=== PATIENT | male | born 1995 | race Caucasian/White ===

== ENCOUNTER 2018-04-30 13:03 | Inpatient (IN) | payer OTHER ==
[2018-04-30 13:55] VITALS: BMI 27.0
--- NOTE | 2018-04-30 14:48 | HP ---
COWS - Scale Resting Pulse: 0= [place] 80 or Below Sweatin= Chills/Flushing Restless Observation: 0= Sits Still Pupil Size: 0= Normal to Room Light Bone or Joint Aches: 1= Mild Discomfort Runny Nose/ Eye Tearin= Nasal Congestion GI Upset > 30mins: 2= Nausea/Diarrhea Tremor Observation: 2= Slight Tremor Visible Yawning Observation: 1= 1-2x During Session Anxiety or Irritability: 1=Feels Anxious/Irritable Goose Flesh Skin: 0=Smooth Skin COWS Score: 9 CIWA Score Nausea/Vomitin Muscle Tremors: 4-Moderate,w/Arms Extend Anxiety: 4-Mod. Anxious/Guarded Agitation: 1-Slight > Activity Paroxysmal Sweats: 1-Minimal Palms Moist Orientation: 0-Oriented Tacttile Disturbances: 0-None Auditory Disturbances: 1-Very Mild Visual Disturbances: 0-None Headache: 1-Very Mild CIWA-Ar Total Score: 15 - Admission Criteria [facility]ASAS Guidelines: Admission for Medically Managed Detox: Requires at least one of the followin. CIWA greater than 12 2. Seizures within the past 24 hours 3. Delirium tremens within the past 24 hours 4. Hallucinations within the past 24 hours 5. Acute intervention needed for co occurring medical disorder 6. Acute intervention needed for co occurring psychiatric disorder 7. Severe withdrawal that cannot be handled at a lower level of care (continued vomiting, continued diarrhea, abnormal vital signs) requiring intravenous medication and/or fluids 8. Patient presents the following: CIWA greater than 12 Admission Criteria Met: Admission criteria met Admission ROS [facility] - [facility] Chief Complaint: I'm so sick of this, sick all the time, I want to stop using, I need help. Allergies/Adverse Reactions: Allergies Allergy/AdvReac Type Severity Reaction Status Date / Time Penicillins Allergy Severe Swelling Verified 04/30/18 14:17 History of Present Illness: 22 yo gentleman here for detox from opiates and alprazolam. History of drug related seizures and black outs. History of detox and rehab in [place] - was on Vivitrol and did well until he stopped it as he thought he didn't need it and then relapsed. Came to [place] in 2017 from [place]. Wants to get back on Vivitrol Exam Limitations: Clinical Condition - Ebola screening Have you traveled outside of the country in the last 21 days: No (N) Have you had contact with anyone from an Ebola affected area: No Have you been sick,other than usual withdrawal symptoms: No Do you have a fever: No - Review of Systems Constitutional: Loss of Appetite, Night Sweats, Changes in sleep, Weakness EENT: reports: Nose Congestion Respiratory: reports: No Symptoms reported Cardiac: reports: No Symptoms Reported GI: reports: Diarrhea, Indigestion, Abdominal cramping : reports: Dysuria Musculoskeletal: reports: Back Pain, Muscle Pain Integumentary: reports: No Symptoms Reported Neuro: reports: Headache, Tremors Endocrine: reports: No Symptoms Reported Hematology: reports: No Symptoms Reported Psychiatric: reports: Mood/Affect Appropiate, Orientated x3, Anxious Other Systems: Reviewed and Negative Patient History - Patient Medical History Hx Asthma: No Hx Chronic Obstructive Pulmonary Disease (COPD): No Hx Cancer: No Hx Cardiac Disorders: No Hx Hypertension: No Hx Hypercholesterolemia: No Hx Pacemaker: No HX Cerebrovascular Accident: No Hx Seizures: Yes (2017 induced by drug intoxication) Hx Diabetes: No Hx Gastrointestinal Disorders: No Hx Liver Disease: No Hx Genitourinary Disorders: No Hx Sexually Transmitted Disorders: No Hx Renal Disease (ESRD): No Hx Thyroid Disease: No Hx Human Immunodeficiency Virus (HIV): No Hx Hepatitis C: No Hx Depression: No Hx Suicide Attempt: No (denies) Hx Schizophrenia: No - Patient Surgical History Past Surgical History: Yes Hx Neurologic Surgery: No Hx Cataract Extraction: No Hx Cardiac Surgery: No Hx Lung Surgery: No Hx Breast Surgery: No Hx Breast Biopsy: No Hx Abdominal Surgery: No Hx Appendectomy: Yes (2015) Hx Cholecystectomy: No Hx Genitourinary Surgery: No Hx Orthopedic Surgery: No Anesthesia Reaction: No - PPD History Previous Implant?: Yes Documented Results: Negative w/o proof Implanted On Prior [facility] Admission?: No PPD to be Administered?: Yes - Reproductive History Patient is a Female of Child Bearing Age (11 -55 yrs old): No (male) - Smoking Cessation Smoking history: Current every day smoker Have you smoked in the past 12 months: Yes Aproximately how many cigarettes per day: 20 Cigars Per Day: 0 Hx Chewing Tobacco Use: No Initiated information on smoking cessation: Yes 'Breaking Loose' booklet given: 04/30/18 (give on floor) - Substance & Tx. History Hx Alcohol Use: No Hx Substance Use: Yes Substance Use Type: Heroin, Tranquilizers Hx Substance Use Treatment: Yes (detox and rehab in [place]) - Substances Abused Heroin Route: Inhalation Frequency: Daily Amount used: 10-15 BAGS Age of first use: 20 Date of Last Use: 04/30/18 Alcohol Route: Oral Frequency: 1-2 times per week Amount used: five 12z cans of beer, Age of first use: 15 Date of Last Use: 04/29/18 XANAX Route: Oral Frequency: Daily Amount used: 3-6 4 mg TABLETS Age of first use: 20 Date of Last Use: 04/30/18 marijuana Route: Smoking Frequency: 1-2 times per week Amount used: 1 joint Age of first use: 13 Date of Last Use: 04/23/18 Family Disease History - Family Disease History Family Disease History: Other: Father (living, healthy), Mother (living, healthy ), Sister (two - healthy) Admission Physical Exam [facility] - Vital Signs Vital Signs: Vital Signs - 24 hr 04/30/18 13:54 Temperature 96.9 F L Pulse Rate 63 Respiratory 20 Rate Blood Pressure 142/70 - Physical General Appearance: Yes: Nourished, Appropriately Dressed, Mild Distress, Tremorous, Anxious HEENTM: Yes: EOMI, Hearing grossly Normal, Normal ENT Inspection, Normocephalic , Normal Voice Respiratory: Yes: Normal Breath Sounds, No Respiratory Distress Neck: Yes: No masses,lesions,Nodules, Supple Breast: Yes: Breast Exam Deferred Cardiology: Yes: Regular Rhythm, Regular Rate Abdominal: Yes: Flat, Soft Genitourinary: Yes: Frequency Back: Yes: Normal Inspection Musculoskeletal: Yes: full range of Motion, Gait Steady Extremities: Yes: Normal Inspection, Normal Range of Motion, Non-Tender Neurological: Yes: Fully Oriented, Alert, Normal Mood/Affect, Normal Response Integumentary: Yes: Normal Color, Warm Lymphatic: Yes: Within Normal Limits - Diagnostic (1) Sedative, hypnotic or anxiolytic dependence with withdrawal, uncomplicated Current Visit: Yes Status: Chronic (2) Opioid dependence with withdrawal Current Visit: Yes Status: Chronic (3) Nicotine dependence Current Visit: Yes Status: Acute Qualifiers: Nicotine product type: cigarettes Substance use status: uncomplicated Qualified Code(s): F17.210 - Nicotine dependence, cigarettes, uncomplicated (4) History of seizure Current Visit: Yes Status: Acute Cleared for Admission [facility] - Detox or Rehab [facility] Level of Care: Medically Managed [facility] Breath Alcohol Content Breath Alcohol Content: 0 Urine Drug Screen - Results Drug Screen Negative: No Urine Drug Screen Results: THC-Marijuana, BZO-Benzodiazepines, MTD-Methadone, FEN-Fentanyl
[2018-04-30] MEDS ORDERED: diazePAM 5 MG TABLET PO ONE (14:50)
[2018-04-30] MEDS ORDERED: MENTHOL/PHENOL 1 EACH UD MM PRN (14:50)
[2018-04-30] MEDS ORDERED: P-EPHED 60MG/TRIPROLIDI 2.5MG TABLET PO PRN (14:50)
[2018-04-30] MEDS ORDERED: METHADONE HCL 10 MG TABLET (FOR DETOX USE ONLY) PO ONE ×2 (14:50→23:00)
[2018-04-30] MEDS ORDERED: ACETAMINOPHEN 325 MG TABLET (FP) PO PRN (14:50)
[2018-04-30] MEDS ORDERED: LOPERAMIDE HCL 2 MG CAPSULE PO PRN (14:50)
[2018-04-30] MEDS ORDERED: IBUPROFEN 400 MG TABLET (FP) PO PRN (14:50)
[2018-04-30] MEDS ORDERED: MAGNESIUM CITRATE 300 ML BOTTLE PO PRN (14:50)
[2018-04-30] MEDS ORDERED: guaiFENesin/D-METHORPHAN HB 10 ML UNIT-DOSE CUPS PO PRN (14:50)
[2018-04-30] MEDS ORDERED: MAG HYDROX/AL HYDROX/SIMETH 30 ML UNIT-DOSE CUP PO PRN (14:50)
[2018-04-30] MEDS ORDERED: MAGNESIUM HYDROX 2400MG/30ML ORAL SUSPENSION 30 ML CUP PO PRN (14:50)
[2018-04-30] MEDS: NICOTINE 21 MG/24 HOURS TOPICAL PATCH TD SCH (16:06)
[2018-04-30] MEDS: diazePAM 5 MG TABLET PO PRN (19:18)
[2018-04-30] MEDS: THIAMINE HCL 100 MG TABLET (FP) PO SCH (22:02)
[2018-04-30] MEDS: diazePAM 5 MG TABLET PO SCH (22:03)
[2018-04-30] MEDS: MELATONIN 5 MG TABLETS PO PRN (23:06)
[2018-05-01] MEDS: diazePAM 5 MG TABLET PO SCH ×3 (05:15→22:28)
[2018-05-01] MEDS: diazePAM 5 MG TABLET PO PRN ×3 (08:43→22:13)
[2018-05-01] MEDS ORDERED: METHADONE HCL 10 MG TABLET (FOR DETOX USE ONLY) PO SCH (10:00)
[2018-05-01] MEDS: NICOTINE 21 MG/24 HOURS TOPICAL PATCH TD SCH (10:08)
[2018-05-01] MEDS: PRENATAL VITAMINS W/ FOLIC ACID TABLET (FP) PO SCH (10:08)
--- NOTE | 2018-05-01 10:14 | PN ---
[facility] CIWA - CIWA Score Nausea/Vomitin-Mild Nausea/No Vomiting Muscle Tremors: 3 Anxiety: 3 Agitation: 3 Paroxysmal Sweats: 1-Minimal Palms Moist Orientation: 1-Uncertain about Date Tacttile Disturbances: 0-None Auditory Disturbances: 0-None Visual Disturbances: 0-None Headache: 2-Mild CIWA-Ar Total Score: 14 S COWS - Scale Resting Pulse: 0= [place] 80 or Below Sweatin= Chills/Flushing Restless Observation: 0= Sits Still Pupil Size: 0= Normal to Room Light Bone or Joint Aches: 2= Severe Diffuse Aches Runny Nose/ Eye Tearin= Nasal Congestion GI Upset > 30mins: 2= Nausea/Diarrhea Tremor Observation of Outstretched Hands: 1= Tremor [place], Not Seen Yawning Observation: 2= >3x During Session Anxiety or Irritability: 1=Feels Anxious/Irritable Goose Flesh Skin: 0=Smooth Skin COWS Score: 10 [facility] Progress Note (SOAP) Subjective: muscle cramping joints pain body aches tremor sweat Objective: 05/01/18 10:13 Vital Signs Temperature 98.1 F 05/01/18 09:26 Pulse Rate 66 05/01/18 09:26 Respiratory Rate 16 05/01/18 09:26 Blood Pressure 149/72 05/01/18 09:26 O2 Sat by Pulse Oximetry (%) 05/01/18 10:14 lab pending Assessment: 05/01/18 10:16 withdrawal sx Plan: continue detox
[2018-05-01 10:39] LABS: ALBUMIN 3.7 g/dl (3.4-5.0); ALK PHOS 95 U/L (45-117); ANION GAP 6 MMOL/L (8-16); BILIRUBIN,TOTAL 0.8 mg/dL (0.2-1); BLOOD UREA NITROGEN 15 mg/dL (7-18); CALCIUM 9.2 mg/dL (8.5-10.1); CHLORIDE 102 mmol/L (98-107); CO2 29 mmol/L (21-32); CREATININE 0.8 mg/dL (0.55-1.3); GLUCOSE,RANDOM 88 mg/dL (74-106); POTASSIUM 4.6 mmol/L (3.5-5.1); SGOT/AST 45 U/L (15-37); SGPT/ALT 129 U/L (13-61); SODIUM 138 mmol/L (136-145); TOT PROT 6.5 g/dl (6.4-8.2)
[2018-05-01 10:54] LABS: HEMOGLOBIN 14.1 GM/dL (11.7-16.9); MCH 29.3 pg (25.7-33.7); MCHC 35.2 g/dl (32.0-35.9); MEAN CELL VOLUME 83.4 fl (80-96); MEAN PLT VOLUME 9.6 fl (7.5-11.1); PLATELET COUNT 236 K/MM3 (134-434); WHITE BLOOD COUNT 5.8 K/mm3 (4.0-10.0)
--- NOTE | 2018-05-01 11:28 | EKG ---
Test Reason : Blood Pressure : / mmHG Vent. Rate : 072 BPM Atrial Rate : 072 BPM P-R Int : 142 ms QRS Dur : 094 ms QT Int : 428 ms P-R-T Axes : 039 031 037 degrees QTc Int : 468 ms NORMAL SINUS RHYTHM T WAVE ABNORMALITY, CONSIDER ANTERIOR ISCHEMIA ABNORMAL ECG NO PREVIOUS ECGS AVAILABLE Confirmed by FRANCISCO WARNER, ADRIANE ([id number]) on 05/01/2018 11:28:09 AM Referred By: Confirmed By:ADRIANE SINGH MD
[2018-05-01] MEDS: THIAMINE HCL 100 MG TABLET (FP) PO SCH (22:13)
[2018-05-01] MEDS: MELATONIN 5 MG TABLETS PO PRN (22:13)
[2018-05-02] MEDS: diazePAM 5 MG TABLET PO PRN (05:55)
[2018-05-02 07:13] VITALS: TEMP 97.9
[2018-05-02 09:27] VITALS: BP 151/78; PULSE 82
[2018-05-02] MEDS ORDERED: METHADONE HCL 5 MG TABLET (FOR DETOX USE ONLY) PO SCH (10:00)
[2018-05-02] MEDS ORDERED: diazePAM 5 MG TABLET PO SCH (10:00)
[2018-05-02] MEDS: PRENATAL VITAMINS W/ FOLIC ACID TABLET (FP) PO SCH (10:08)
[2018-05-02] MEDS: NICOTINE 21 MG/24 HOURS TOPICAL PATCH TD SCH (10:10)
--- NOTE | 2018-05-02 10:12 | PN ---
[facility] CIWA - CIWA Score Nausea/Vomitin-No Nausea/No Vomiting Muscle Tremors: 4-Moderate,w/Arms Extend Anxiety: 3 Agitation: 3 Paroxysmal Sweats: 3 Orientation: 0-Oriented Tacttile Disturbances: 0-None Auditory Disturbances: 0-None Visual Disturbances: 0-None Headache: 0-None Present CIWA-Ar Total Score: 13 S COWS - Scale Resting Pulse: 1= [place] 81-100 Sweatin=Flushed/Facial Moisture Restless Observation: 1= Difficult to Sit Still Pupil Size: 0= Normal to Room Light Bone or Joint Aches: 2= Severe Diffuse Aches Runny Nose/ Eye Tearin= Nasal Congestion GI Upset > 30mins: 0= None Tremor Observation of Outstretched Hands: 2= Slight Tremor Visible Yawning Observation: 0= None Anxiety or Irritability: 2=Irritable/Anxious Goose Flesh Skin: 0=Smooth Skin COWS Score: 11 S Progress Note (SOAP) Subjective: agitation sweats anxiety interrupted sleep body aches Objective: 05/02/18 10:12 Vital Signs Temperature 97.9 F 05/02/18 09:26 Pulse Rate 82 05/02/18 09:26 Respiratory Rate 18 05/02/18 09:26 Blood Pressure 151/78 05/02/18 09:26 O2 Sat by Pulse Oximetry (%) Laboratory Tests 05/01/18 05/01/18 05/01/18 07:30 07:30 07:30 WBC 5.8 RBC 4.80 Hgb 14.1 Hct 40.0 MCV 83.4 MCH 29.3 MCHC 35.2 RDW 13.0 Plt Count 236 MPV 9.6 Sodium 138 Potassium 4.6 Chloride 102 Carbon Dioxide 29 Anion Gap 6 L BUN 15 Creatinine 0.8 Creat Clearance w eGFR > 60 Random Glucose 88 Calcium 9.2 Total Bilirubin 0.8 AST 45 H ALT 129 H Alkaline Phosphatase 95 Total Protein 6.5 Albumin 3.7 RPR Titer Nonreactive aaox3 ambulating no acute distress Assessment: 05/02/18 10:12 withdrawal sx Plan: continue detox increase fluids
--- NOTE | 2018-05-02 10:15 | PN ---
S Progress Note Note: pt insisted on leaving states I want to get the fuck out of here. fuck all you bitches. Pt signed out AMA.
--- NOTE | 2018-05-02 10:20 | DS ---
[facility] Detox Discharge Summary Admission Date: 04/30/18 - History Present History: Opioid Dependence, Sedative Dependence - Physical Exam Results Vital Signs: Vital Signs Temperature 97.9 F 05/02/18 09:26 Pulse Rate 82 05/02/18 09:26 Respiratory Rate 18 05/02/18 09:26 Blood Pressure 151/78 05/02/18 09:26 O2 Sat by Pulse Oximetry (%) - Treatment Hospital Course: Discharged Condition Good - Medication Discharge Medications: Ambulatory Orders NK [No Known Home Medication] 04/30/18 - Diagnosis (1) History of seizure Current Visit: Yes Status: Suspected (2) Nicotine dependence Current Visit: Yes Status: Chronic Qualifiers: Nicotine product type: cigarettes Substance use status: uncomplicated Qualified Code(s): F17.210 - Nicotine dependence, cigarettes, uncomplicated (3) Opioid dependence with withdrawal Current Visit: Yes Status: Chronic (4) Sedative, hypnotic or anxiolytic dependence with withdrawal, uncomplicated Current Visit: Yes Status: Chronic - AMA Did Patient Leave Against Medical Advice: Yes
[2018-05-04] MEDS ORDERED: diazePAM 5 MG TABLET PO SCH (10:00)
[2018-05-04] MEDS ORDERED: METHADONE HCL 10 MG TABLET (FOR DETOX USE ONLY) PO SCH (10:00)
[2018-05-05] MEDS ORDERED: METHADONE HCL 5 MG TABLET (FOR DETOX USE ONLY) PO SCH (06:00)
== END 2018-05-02 10:20 | disposition left against medical advice (07) | DRG 894 ==
LOC: YASAS 13:03 → Y6N 15:09
PROC: HZ2ZZZZ Detoxification Services for Substance Abuse Treatment (ICD-10-PCS; principal; 2018-04-30)
DX: F11.23 Opioid dependence with withdrawal (principal); F13.230 Sedative, hypnotic or anxiolytic dependence with withdrawal, uncomplicated; F17.210 Nicotine dependence, cigarettes, uncomplicated; Z86.69 Personal history of other diseases of the nervous system and sense organs; Z88.0 Allergy status to penicillin
CPT/HCPCS: 36415; 80053; 85027; 86593; 93005; 93010

== ENCOUNTER 2019-03-14 19:32 | Emergency (ER) | payer OTHER ==
[2019-03-14 19:37] VITALS: BP 137/86; PULSE 62; TEMP 98; BMI 25.0
--- NOTE | 2019-03-14 19:53 | PDOC ---
Attending Attestation - Resident Resident Name: Gisselle Guzman - ED Attending Attestation I have performed the following: I have examined & evaluated the patient, The case was reviewed & discussed with the resident, I agree w/resident's findings & plan - HPI HPI: 03/14/19 23:20 agree with resident hpi - Physicial Exam PE: 03/14/19 23:20 agree with resident exam - Medical Decision Making 03/14/19 23:20 23-year-old male with nausea vomiting after eating almost an entire pizza CT scan of the abdomen shows possible colitis, CT scan of the brain was performed as well due to headache post vomiting which showed no acute abnormality intracranially, sinus disease was noted Patient feeling better after IV fluid normal saline, Zofran, Reglan and Benadryl Plan for chest x-ray due to post emesis chest discomfort If tolerating p.o. plan for DC home
[2019-03-14] MEDS ORDERED: ONDANSETRON 4 MG/2 ML VIAL IVPUSH ONE (20:24)
[2019-03-14] MEDS ORDERED: SODIUM CHLORIDE 0.9% 500 ML INFUS.BAG IV ONE (20:24)
[2019-03-14] MEDS ORDERED: ONDANSETRON 4 MG/2 ML VIAL ONE (20:31)
[2019-03-14 20:51] LABS: BASO % 0.5 % (0-2.0); HEMATOCRIT 43.6 % (35.4-49); HEMOGLOBIN 14.8 GM/dL (11.7-16.9); LYMPH % 12.8 % (8-40); MCH 28.7 pg (25.7-33.7); MCHC 33.9 g/dl (32.0-35.9); MEAN CELL VOLUME 84.5 fl (80-96); MEAN PLT VOLUME 9.2 fl (7.5-11.1); MONO % 4.5 % (3.8-10.2); NEUT % 82.2 % (42.8-82.8); PLATELET COUNT 369 K/MM3 (134-434); RBC 5.16 M/mm3 (4.00-5.60); WHITE BLOOD COUNT 11.7 K/mm3 (4.0-10.0)
--- NOTE | 2019-03-14 20:54 | PDOC ---
History of Present Illness - General Chief Complaint: Nausea/Vomiting Stated Complaint: VOMITING Time Seen by Provider: 03/14/19 19:52 - History of Present Illness Initial Comments: 03/14/19 20:49 The patient is a 23 year old male with a PMH of heroin abuse who presents to our ED this evening c/o acute onset of vomiting starting around 2 p.m. this afternoon. Patient states he ate a large amount of delivery pizza and started vomiting approximately 30 minutes later - emesis was initially clear and then yellowish. States he has vomited approximately 20 times prior to presentation to our ED. Denies any associated abdominal pain, dysuria/hematuria. Last BM was yesterday and was normal. Smokes 1 ppd, marijuana 1-2x weekly. No h/o cannabis 03/14/19 21:14 Past History - Past Medical History Allergies/Adverse Reactions: Allergies Allergy/AdvReac Type Severity Reaction Status Date / Time Penicillins Allergy Severe Swelling Verified 03/14/19 19:33 Home Medications: Ambulatory Orders NK [No Known Home Medication] 04/30/18 Asthma: No Cancer: No Cardiac Disorders: No CVA: No COPD: No Diabetes: No GI Disorders: No Disorders: No HTN: No Hypercholesterolemia: No Kidney Stones: No Liver Disease: No Seizures: Yes (2017 induced by drug intoxication) Thyroid Disease: No - Surgical History Abdominal Surgery: No Appendectomy: Yes (2015) Cardiac Surgery: No Cholecystectomy: No Lung Surgery: No Neurologic Surgery: No Orthopedic Surgery: No - Reproductive History Testicular Surgery: No - Psycho Social/Smoking Cessation Hx Smoking History: Current every day smoker Have you smoked in the past 12 months: Yes Number of Cigarettes Smoked Daily: 20 Cigars Per Day: 0 Information on smoking cessation initiated: No 'Breaking Loose' booklet given: 04/30/18 (give on floor) Hx Alcohol Use: No Drug/Substance Use Hx: Yes Substance Use Type: Heroin, Tranquilizers Hx Substance Use Treatment: Yes (detox and rehab in [place]) Review of Systems - Review of Systems Constitutional: Yes: Other (Headache). No: Chills, Fever Respiratory: No: Cough, Shortness of Breath Cardiac (ROS): No: Chest Pain, Lightheadedness, Palpitations ABD/GI: No: Constipated, Diarrhea, Nausea, Vomiting *Physical Exam - Vital Signs Last Vital Signs Temp Pulse Resp BP Pulse Ox 98.0 F 62 18 137/86 100 03/14/19 19:33 03/14/19 19:33 03/14/19 19:33 03/14/19 19:33 03/14/19 19:33 - Physical Exam General Appearance: Yes: Nourished, Thin, Other (Active wretching emesis) HEENT: positive: Normal Voice, Hearing Grossly Normal Neck: positive: Trachea midline, Supple Respiratory/Chest: positive: Lungs Clear, Normal Breath Sounds Cardiovascular: positive: S1, S2 Vascular Pulses: Dorsalis-Pedis (R): 2+, Doralis-Pedis (L): 2+ Gastrointestinal/Abdominal: positive: Normal Bowel Sounds, Soft. negative: Guarding, Rebound, Tenderness, Hernia, Mass Musculoskeletal: negative: CVA Tenderness (R), CVA Tenderness (L) Extremity: positive: Normal Capillary Refill, Normal Inspection Integumentary: positive: Normal Color, Dry, Warm Neurologic: positive: nursing unit coordinator II-XII NML intact, Fully Oriented, Alert ED Treatment Course - LABORATORY CBC & Chemistry Diagram: 03/14/19 20:45 03/14/19 20:45 Medical Decision Making - Medical Decision Making 03/14/19 22:41 23 y/o male with acute onset of emesis. H/o opioid dependence, current cannabis use. VS unremarkable. Belly soft, non-tender. Will give symptomatic treatment and given multiple episodes of forceful retching in the ED + MARTÍNEZ will evaluate for Booerhave's, brain bleed in addition to colitis. Also consider pancreatitis, gastroenteritis, opiate withdrawal. PLAN: CBC, CMP, Lipase, UTox, CXR, CTAP, Head CT. Zofran, IV hydration. 03/14/19 22:[address] negative CTAP equivocal for colitis CBC, CMP unremarkable UTox negative 03/15/19 00:21 CXR negative for Booerhave's Will discharge home with supportive care. Clinical Impression: Toxic Food Ingestion Discharge - Discharge Information Problems reviewed: Yes Clinical Impression/Diagnosis: Vomiting Condition: Good Disposition: HOME - Admission No - Follow up/Referral Referrals: Fco Duron [facility] [Primary Care Provider] - - Patient Discharge Instructions Patient Printed Discharge Instructions: DI for Vomiting -- Adult Additional Instructions: Drink plenty of water. Return to the ED for any new/worsening/concerning symptoms. - Post Discharge Activity
[2019-03-14] MEDS ORDERED: METOCLOPRAMIDE HCL INJECTION 10 MG/2 ML VIAL IVPUSH ONE (21:25)
[2019-03-14] MEDS ORDERED: FAMOTIDINE 20 MG/50 ML IVPB 20 MG/50 ML MG IVPB ONE ×2 (21:29→21:44)
[2019-03-14 21:38] LABS: ALBUMIN 4.9 g/dl (3.4-5.0); ALK PHOS 97 U/L (45-117); ANION GAP 7 MMOL/L (8-16); BILIRUBIN,TOTAL 1.1 mg/dL (0.2-1); BLOOD UREA NITROGEN 10.4 mg/dL (7-18); CALCIUM 10.1 mg/dL (8.5-10.1); CHLORIDE 110 mmol/L (98-107); CO2 24 mmol/L (21-32); CREATININE 0.9 mg/dL (0.55-1.3); GLUCOSE,RANDOM 131 mg/dL (74-106); POTASSIUM 4.6 mmol/L (3.5-5.1); SGOT/AST 22 U/L (15-37); SGPT/ALT 26 U/L (13-61); SODIUM 141 mmol/L (136-145); TOT PROT 7.8 g/dl (6.4-8.2)
[2019-03-14] MEDS ORDERED: METOCLOPRAMIDE HCL INJECTION 10 MG/2 ML VIAL ONE (21:44)
[2019-03-15 00:06] LABS: COCAINE, UR NEGATIVE ng/ml (CUTOFF=300); METHADONE, UR NEGATIVE ng/ml (CUTOFF=300); OPIATES, URI NEGATIVE ng/ml (CUTOFF=300); PHENCYCLIDINE,URINE NEGATIVE ng/ml (CUTOFF=25); URINE AMPHETAMINES NEGATIVE ng/ml (CUTOFF=500); URINE BARBITURATES NEGATIVE ng/ml (CUTOFF=200); URINE BENZODIAZEPINES NEGATIVE ng/ml (CUTOFF=200)
--- NOTE | 2019-03-15 11:03 | EKG ---
Test Reason : Blood Pressure : / mmHG Vent. Rate : 052 BPM Atrial Rate : 052 BPM P-R Int : 128 ms QRS Dur : 092 ms QT Int : 446 ms P-R-T Axes : 057 039 049 degrees QTc Int : 414 ms SINUS BRADYCARDIA WITH SINUS ARRHYTHMIA VOLTAGE CRITERIA FOR LEFT VENTRICULAR HYPERTROPHY ABNORMAL ECG WHEN COMPARED WITH ECG OF 30-APR-2018 15:28, T WAVE INVERSION NO LONGER EVIDENT IN ANTERIOR LEADS QT HAS SHORTENED Confirmed by ROSANNA WARNER, MARIBEL ([id number]) on 03/15/2019 11:03:36 AM Referred By: Confirmed By:MARIBEL MARTE MD
== END 2019-03-15 00:40 | disposition home or self-care (01) ==
LOC: JER 19:32
PROC: 3E033GC Introduction of Other Therapeutic Substance into Peripheral Vein, Percutaneous Approach (ICD-10-PCS; principal; 2019-03-14)
PROC: 3E033GC Introduction of Other Therapeutic Substance into Peripheral Vein, Percutaneous Approach (ICD-10-PCS; 2019-03-14)
PROC: 3E033GC Introduction of Other Therapeutic Substance into Peripheral Vein, Percutaneous Approach (ICD-10-PCS; 2019-03-14)
PROC: 3E033GC Introduction of Other Therapeutic Substance into Peripheral Vein, Percutaneous Approach (ICD-10-PCS; 2019-03-14)
DX: R11.10 Vomiting, unspecified (principal); F12.10 Cannabis abuse, uncomplicated; F17.210 Nicotine dependence, cigarettes, uncomplicated; Z86.69 Personal history of other diseases of the nervous system and sense organs; Z88.0 Allergy status to penicillin
CPT/HCPCS: 36415; 70450-TC; 71046-TC-FY; 74177-TC; 80053; 80307; 84484; 85025; 93005; 93010; 99283-25; Q9967

== ENCOUNTER 2019-03-16 19:12 | Emergency (ER) | payer OTHER ==
--- NOTE | 2019-03-16 19:28 | PDOC ---
Rapid Medical Evaluation Time Seen by Provider: 03/16/19 19:26 Medical Evaluation: Allergies Allergy/AdvReac Type Severity Reaction Status Date / Time Penicillins Allergy Severe Swelling Verified 03/14/19 19:33 03/16/19 19:28 I have performed a brief in-person evaluation of this patient. The patient presents with a chief complaint of: vomiting Pertinent physical exam findings:stable and in NAD, non-focal I have ordered the following:labs The patient will proceed to the ED for further evaluation.
[2019-03-16 19:29] VITALS: BP 137/89; PULSE 74; TEMP 98.2; BMI 25.0
[2019-03-16] MEDS ORDERED: SODIUM CHLORIDE 1,000 ML IV STA (19:30)
[2019-03-16] MEDS ORDERED: ONDANSETRON 4 MG/2 ML VIAL IVPUSH ONE (19:30)
[2019-03-16] MEDS ORDERED: ONDANSETRON 4 MG/2 ML VIAL ONE (20:17)
--- NOTE | 2019-03-16 20:23 | PDOC ---
History of Present Illness - General Chief Complaint: Nausea/Vomiting Stated Complaint: VOMITTING Time Seen by Provider: 03/16/19 19:26 - History of Present Illness Initial Comments: 03/16/19 20:23 CHIEF COMPLAINT: abdominal pain, vomiting HISTORY OF PRESENT ILLNESS: 23 yo M with hx of polysubstance abuse (per chart history) presents to ED with abdominal pain and vomiting. Patient was seen two days ago in this ED for similar symptoms and reports he was diagnosed with " food poisoning," but reports that his symptoms "got better then got worse." Patient is agitated and verbally aggressive upon initial exam. No recent travel or sick contacts. PAST MEDICAL HISTORY: Denies past medical history FAMILY HISTORY: Denies SOCIAL HISTORY: Denies tobacco, alcohol, illicit drug use. SURGICAL HISTORY: Denies ALLERGIES: PCN REVIEW OF SYSTEMS General/Constitutional: Denies fever or chills. Denies weakness, weight change. HEENT: Denies change in vision. Denies ear pain or discharge. Denies sore throat. Cardiovascular: Denies chest pain or shortness of breath. Respiratory: Denies cough, wheezing, or hemoptysis. Gastrointestinal: Vomiting x 2 days. Denies rectal bleeding. Genitourinary: Denies dysuria, frequency, or change in urination. Musculoskeletal: Denies joint or muscle swelling or pain. Denies neck or back pain. Skin and breasts: Denies rash or easy bruising. Neurologic: Denies headache, vertigo, loss of consciousness, or loss of sensation. Psychiatric: Denies depression or anxiety. PHYSICAL EXAM General Appearance: Well-appearing, appropriately dressed. No apparent distress , no intoxication. HEENT: EOMI, PERRLA, normal ENT inspection, normal voice, TMs normal, pharynx normal. No conjunctival pallor. No photophobia, scleral icterus. Neck: Supple. Trachea midline. No tenderness, rigidity, carotid bruit, stridor , lymphadenopathy, or thyromegaly. Respiratory/Chest: Lungs CTAB. No shortness of breath, chest tenderness, respiratory distress, accessory muscle use. No crackles, rales, rhonchi, stridor , wheezing, dullness Cardiovascular: RRR. S1, S2. No JVD, murmur, bradycardia, tachycardia. Vascular Pulses: Dorsalis-Pedis (R): 2+, Dorsalis-Pedis (L): 2+ Gastrointestinal/Abdominal: Normal bowel sounds. Abdomen soft, non-distended. No tenderness or rebound tenderness. No organomegaly, pulsatile mass, guarding , hernia, hepatomegaly, splenomegaly. Lymphatic: No adenopathy, tenderness. Musculoskeletal/Extremities: Normal inspection. FROM of all extremities, normal capillary refill. Pelvis Stable. No CVA tenderness. No tenderness to extremities, pedal edema, swelling, erythema or deformity. Integumentary: Appropriate color, dry, warm. 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 Fully oriented, alert. Appropriate mood/affect. Motor strength 5/5. No appreciable EOM palsy, facial droop or sensory deficit. Past History - Past Medical History Allergies/Adverse Reactions: Allergies Allergy/AdvReac Type Severity Reaction Status Date / Time Penicillins Allergy Severe Swelling Verified 03/16/19 20:32 Home Medications: Ambulatory Orders NK [No Known Home Medication] 04/30/18 Asthma: No Cancer: No Cardiac Disorders: No CVA: No COPD: No Diabetes: No GI Disorders: No Disorders: No HTN: No Hypercholesterolemia: No Kidney Stones: No Liver Disease: No Seizures: Yes (2016 induced by drug intoxication) Thyroid Disease: No - Surgical History Abdominal Surgery: No Appendectomy: Yes (2015) Cardiac Surgery: No Cholecystectomy: No Lung Surgery: No Neurologic Surgery: No Orthopedic Surgery: No - Reproductive History Testicular Surgery: No - Psycho Social/Smoking Cessation Hx Smoking History: Current every day smoker Have you smoked in the past 12 months: Yes Number of Cigarettes Smoked Daily: 24 Cigars Per Day: 0 Information on smoking cessation initiated: No 'Breaking Loose' booklet given: 04/30/18 (give on floor) Hx Alcohol Use: No Drug/Substance Use Hx: Yes Substance Use Type: Heroin, Tranquilizers Hx Substance Use Treatment: Yes (detox and rehab in [place]) Abd/GI Specific PMHX - Complaint Specific PMHX Hepatitis: No Pancreatitis: No *Physical Exam - Vital Signs Last Vital Signs Temp Pulse Resp BP Pulse Ox 98.2 F 74 19 137/89 98 03/16/19 19:26 03/16/19 19:26 03/16/19 19:26 03/16/19 19:26 03/16/19 19:26 ED Treatment Course - LABORATORY CBC & Chemistry Diagram: 03/16/19 20:11 03/16/19 20:11 Medical Decision Making - Medical Decision Making 03/16/19 20:20 23 yo M with hx of polysubstance abuse presents to ED with abdominal pain and vomiting. -labs -david, IVF Patient came into exam room verbally abusing RN as she tried to get labs. Patient c/o that he didn't want to wait, doesn't know why he came to the ER if he was going to have to wait, and that he should "just leave if i have to wait. " Patient was extremely aggressive with nurse and myself. Patient's father is at bedside with patient, who states he understands the wait but patient continuously is combative and verbally abuse to staff. Father was able to calm the patient down and get him to stay for meds. Will reassess. 03/16/19 22:04 Patient's bili 1.8, up from 1.1 two days ago. Discussed with patient and family extensively concern for cholecystitis, and that further imaging is required to evaluate. Patient and family state they do not want to stay and do not believe in the care of this hospital given that he was not diagnosed two days ago. Family states that they want a second opinion by their primary care doctor prior to any further investigation. Parents state that the child "has had this before and the doctor monitored him for 24 hours and he was fine." Mother verbalized understanding of concern, return precautions given to mother. Patient states "fuck you I'm not staying, ther'es no fucking way, fuck you." Patient signed out AMA. 03/16/19 22:07 03/16/19 22:08 Discharge - Discharge Information Problems reviewed: Yes Clinical Impression/Diagnosis: Vomiting Condition: Guarded Disposition: AGAINST MEDICAL ADVICE - Follow up/Referral - Patient Discharge Instructions - Post Discharge Activity
[2019-03-16 20:34] LABS: BASO % 0.4 % (0-2.0); EOS % 0.2 % (0-4.5); HEMATOCRIT 46.1 % (35.4-49); HEMOGLOBIN 15.5 GM/dL (11.7-16.9); LYMPH % 22.1 % (8-40); MCH 28.3 pg (25.7-33.7); MCHC 33.7 g/dl (32.0-35.9); MEAN PLT VOLUME 9.1 fl (7.5-11.1); MONO % 9.4 % (3.8-10.2); NEUT % 67.9 % (42.8-82.8); PLATELET COUNT 392 K/MM3 (134-434); RBC 5.48 M/mm3 (4.00-5.60); RDW 13.2 % (11.9-15.9); WHITE BLOOD COUNT 13.5 K/mm3 (4.0-10.0)
[2019-03-16 21:04] LABS: ALBUMIN 4.5 g/dl (3.4-5.0); BILIRUBIN,TOTAL 1.8 mg/dL (0.2-1); BLOOD UREA NITROGEN 12.1 mg/dL (7-18); CALCIUM 9.8 mg/dL (8.5-10.1); CREATININE 0.9 mg/dL (0.55-1.3); POTASSIUM 3.8 mmol/L (3.5-5.1); TOT PROT 7.2 g/dl (6.4-8.2)
[2019-03-16 21:37] LABS: EPI CELLS 1.7 /HPF (0-5/HPF); HYALINE CASTS 5 /lpf (0-8); URINE APPEARANCE CLEAR; URINE BACTERIA 9.1 /hpf (NEGATIVE); URINE BILIRUBIN 1+ (NEGATIVE); URINE COLOR DK YELLOW; URINE GLUCOSE (UA) NEGATIVE (NEGATIVE); URINE KETONE 1+ (NEGATIVE); URINE LEUK ESTERASE TRACE (NEGATIVE); URINE NITRITE NEGATIVE (NEGATIVE); URINE PROTEIN TRACE (NEGATIVE); URINE RBC 2 /hpf (0-4); URINE UROBILINOGEN 4.0 E.U/dl mg/dL (0.2-1.0); URINE WBC 1 /hpf (0-5)
== END 2019-03-16 22:27 | disposition left against medical advice (07) ==
LOC: JER 19:12
PROC: 3E033GC Introduction of Other Therapeutic Substance into Peripheral Vein, Percutaneous Approach (ICD-10-PCS; principal; 2019-03-16)
DX: R11.10 Vomiting, unspecified (principal); F17.210 Nicotine dependence, cigarettes, uncomplicated; Z86.69 Personal history of other diseases of the nervous system and sense organs; F19.11 Other psychoactive substance abuse, in remission; Z88.0 Allergy status to penicillin
CPT/HCPCS: 36415; 80053; 81003; 83690; 85025; 99282-25; J7030

== ENCOUNTER 2019-03-21 07:40 | Emergency (ER) | payer OTHER ==
[2019-03-21 07:50] VITALS: BP 158/83; PULSE 78; TEMP 97.8; BMI 25.0
[2019-03-21] MEDS ORDERED: FAMOTIDINE 20 MG/50 ML IVPB 20 MG/50 ML MG IVPB ONE ×2 (07:58→08:09)
[2019-03-21] MEDS ORDERED: MAG HYDROX/AL HYDROX/SIMETH 30 ML UNIT-DOSE CUP PO ONE (07:58)
[2019-03-21] MEDS ORDERED: SODIUM CHLORIDE 1,000 ML IV STA (07:58)
[2019-03-21] MEDS ORDERED: ONDANSETRON 4 MG/2 ML VIAL IVPUSH ONE ×2 (07:58→10:19)
[2019-03-21] MEDS ORDERED: ONDANSETRON 4 MG/2 ML VIAL ONE ×2 (08:09→10:27)
[2019-03-21] MEDS ORDERED: MAG HYDROX/AL HYDROX/SIMETH 30 ML UNIT-DOSE CUP ONE (08:09)
--- NOTE | 2019-03-21 08:15 | PDOC ---
History of Present Illness <Adriana Hunter - Last Filed: 03/21/19 08:38> - General History Source: Patient, Parent(s) - History of Present Illness Timing/Duration: reports: intermittent Quality: reports: severe Abdominal Pain Onset Location: reports: epigastric <Tammy StackGrupo Last Filed: 03/21/19 11:08> - General Chief Complaint: Nausea/Vomiting Stated Complaint: PAIN,VOMITING,NAUSEA Time Seen by Provider: 03/21/19 07:54 Past History <Adriana Hunter - Last Filed: 03/21/19 08:38> - Past Medical History Asthma: No Cancer: No Cardiac Disorders: No CVA: No COPD: No Diabetes: No GI Disorders: No Disorders: No HTN: No Hypercholesterolemia: No Kidney Stones: No Liver Disease: No Seizures: Yes (2017 induced by drug intoxication) Thyroid Disease: No - Surgical History Abdominal Surgery: No Appendectomy: Yes (2015) Cardiac Surgery: No Cholecystectomy: No Lung Surgery: No Neurologic Surgery: No Orthopedic Surgery: No - Reproductive History Testicular Surgery: No - Psycho Social/Smoking Cessation Hx Smoking History: Current every day smoker Have you smoked in the past 12 months: Yes Number of Cigarettes Smoked Daily: 20 Cigars Per Day: 0 Information on smoking cessation initiated: No 'Breaking Loose' booklet given: 04/30/18 (give on floor) Hx Alcohol Use: No Drug/Substance Use Hx: Yes Substance Use Type: Heroin, Tranquilizers Hx Substance Use Treatment: Yes (detox and rehab in [place]) <Erich Stack Last Filed: 03/21/19 11:08> - Past Medical History Allergies/Adverse Reactions: Allergies Allergy/AdvReac Type Severity Reaction Status Date / Time Penicillins Allergy Severe Swelling Verified 03/21/19 07:50 Home Medications: Ambulatory Orders Famotidine [Pepcid] 20 mg PO BID #14 tablet 03/21/19 Mag Hydrox/Al Hydrox/Simeth [Mylanta Suspension -] 30 ml PO Q6H #1 bottle Ondansetron HCl [Zofran] 4 mg PO Q6H #15 tablet 03/21/19 Abd/GI Specific PMHX - Complaint Specific PMHX Hepatitis: No Pancreatitis: No <Erich Stack Last Filed: 03/21/19 11:08> Review of Systems - Review of Systems Constitutional: No: Chills, Fever ABD/GI: Yes: Nausea, Vomiting. No: Blood Streaked Bowels, Diarrhea, Rectal Bleeding, Tarry Stools : No: Dysuria <Erich Stack - Last Filed: 03/21/19 11:08> *Physical Exam - Vital Signs Last Vital Signs Temp Pulse Resp BP Pulse Ox 97.8 F 78 16 158/83 100 03/21/19 07:43 03/21/19 07:43 03/21/19 07:43 03/21/19 07:43 03/21/19 07:43 <Marty Huntersuzi Reynagarudy - Last Filed: 03/21/19 08:38> - Vital Signs Last Vital Signs Temp Pulse Resp BP Pulse Ox 97.8 F 78 16 158/83 100 03/21/19 07:43 03/21/19 07:43 03/21/19 07:43 03/21/19 07:43 03/21/19 07:43 - Physical Exam Comments: 03/21/19 08:33 actively vomiting in ED General Appearance: Yes: Appropriately Dressed, Severe Distress HEENT: positive: Normal Voice Neck: positive: Supple Respiratory/Chest: negative: Respiratory Distress Gastrointestinal/Abdominal: positive: Normal Bowel Sounds, Tender (minimal ttp to epigastrium, NT to RUQ), Soft. negative: Distended, Guarding, Rebound Musculoskeletal: negative: CVA Tenderness Integumentary: positive: Dry, Warm Neurologic: positive: Fully Oriented, Alert, Normal Mood/Affect <Erich Stack - Last Filed: 03/21/19 11:08> ED Treatment Course - Medications Given in the ED: ED Medications Discontinued Medications Generic Name Dose Route Start Last Admin Trade Name Freq PRN Reason Stop Dose Admin Al Hydroxide/Mg Hydroxide 30 ml 03/21/19 07:58 03/21/19 08:29 Mylanta Oral Suspension - PO 03/21/19 07:59 Not Given ONCE ONE Famotidine/Sodium Chloride 20 mg in 50 mls @ 100 mls/hr 03/21/19 07:58 08:29 Pepcid 20 Mg Premixed Ivpb - IVPB 03/21/19 08:27 100 mls/hr ONCE ONE Administration Ondansetron HCl 4 mg 03/21/19 07:58 03/21/19 08:29 Zofran Injection IVPUSH 03/21/19 07:59 4 mg ONCE ONE Administration <Adriana Hunter - Last Filed: 03/21/19 08:38> - LABORATORY CBC & Chemistry Diagram: 03/21/19 08:23 03/21/19 08:23 - RADIOLOGY Radiology Studies Ordered: Category Date Time Status ABDOMEN US -LIMITED [US] Stat Ultrasound 03/21/19 08:04 Ordered <Erich Stack - Last Filed: 03/21/19 11:08> Medical Decision Making - Medical Decision Making 23-year-old male with history of polysubstance abuse, marijuana use, heroin abuse presenting with nausea and vomiting. He has had 2 prior ED visits for similar symptoms, last one on 03/16/2019 where he ate made and was verbally abusive, refusing labs and work-up. He was initially seen on 03/14/2019 for the same symptoms which he attributed to food poisoning from pizza he ate at that time. He also had CT abdomen and pelvis done at that time which had equivocal findings for colitis vitals reviewed, wnl labs and lytes analgesia sono agree with midlevel provider, HPI/PE, assessment and plan as documented. 03/21/19 08:38 <Adriana Hunter - Last Filed: 03/21/19 08:38> - Medical Decision Making 03/21/19 08:18 23-year-old male, h/o polysubstance abuse including opioids and marijuana use, here in ED for 3rd visit for nausea vomiting. Patient was initially seen in ED 03/14 with nausea/vomiting, found to have ? colitis on CT (?mild thickened sigmoid colon vs artifactual 2/2 distension per read)and was discharged home. Returned 2 days later with recurrent symptoms and found to have bilirubin of 1.8 which had increased from 1.1 on the previous visit. Plan was to do an ultrasound but patient became combative with staff and left AMA per records. Here today because nausea/vomiting reoccurred yesterday and now complaining of upper abdominal pain. Patient is s/p appy remotely. Is having bowel movements and passing gas with no melena, bright red blood per rectum, diarrhea, f/c see exam ? cyclical n/v 2/2 marijuana use vs gastritis/GERD, less likely pancreatitis given nl lipase on recent labs, less likely acute placido or SBO -antiemetic -GI cocktail -IVF -labs -US -reassess 03/21/19 10:21 Labs only remarkable for + opioid and marijuana with improvement of bilirubin to 1.3 with only hepatomegaly on ultrasound. Pt reports that epigastric pain has since resolved but still feels nauseous. Will give 2nd dose of Zofran and reassess. If discharged, will prescribe GI cocktail and have patient follow-up with his PMD. Had lengthy discussion with patient regarding the possibility that his symptoms could possibly be caused by marijuana use and that he should strongly consider drug cessation 03/21/19 11:06 Pt reports feeling sig better and now req discharge. Able to jennifer po. Discharged in stable conditions <Erich Stack - Last Filed: 03/21/19 11:08> Discharge <Adriana Hunter - Last Filed: 03/21/19 08:38> - Discharge Information Problems reviewed: Yes <Erich Stack - Last Filed: 03/21/19 11:08> - Discharge Information Clinical Impression/Diagnosis: Nausea & vomiting Qualifiers: Vomiting type: unspecified Vomiting Intractability: unspecified Qualified Code( s): R11.2 - Nausea with vomiting, unspecified Condition: Improved Disposition: HOME - Additional Discharge Information Prescriptions: Famotidine [Pepcid] 20 mg PO BID #14 tablet Mag Hydrox/Al Hydrox/Simeth [Mylanta Suspension -] 30 ml PO Q6H #1 bottle Ondansetron HCl [Zofran] 4 mg PO Q6H #15 tablet - Follow up/Referral Referrals: Fco Duron MD [Primary Care Provider] - - Patient Discharge Instructions Patient Printed Discharge Instructions: DI for Vomiting -- Adult Additional Instructions: Your symptoms are possibly caused by your marijuana use as was discussed today. Please strongly consider cessation of drugs Please take medications as prescribed and follow-up with your PMD. Return to ER as needed - Post Discharge Activity Work/Back to School Note: Back to School
[2019-03-21 08:51] LABS: BASO % 0.2 % (0-2.0); EOS % 0.1 % (0-4.5); HEMATOCRIT 45.6 % (35.4-49); HEMOGLOBIN 15.7 GM/dL (11.7-16.9); LYMPH % 12.4 % (8-40); MCH 28.7 pg (25.7-33.7); MCHC 34.3 g/dl (32.0-35.9); MEAN CELL VOLUME 83.8 fl (80-96); MEAN PLT VOLUME 9.2 fl (7.5-11.1); MONO % 4.6 % (3.8-10.2); NEUT % 82.7 % (42.8-82.8); PLATELET COUNT 326 K/MM3 (134-434); RBC 5.45 M/mm3 (4.00-5.60); RDW 13.4 % (11.9-15.9); WHITE BLOOD COUNT 9.9 K/mm3 (4.0-10.0)
[2019-03-21 09:18] LABS: ALBUMIN 4.3 g/dl (3.4-5.0); BILIRUBIN,TOTAL 1.3 mg/dL (0.2-1); BLOOD UREA NITROGEN 10.1 mg/dL (7-18); CALCIUM 9.8 mg/dL (8.5-10.1); CREATININE 0.9 mg/dL (0.55-1.3); POTASSIUM 3.9 mmol/L (3.5-5.1)
[2019-03-21 09:24] LABS: PH,URINE >= 9.0 (5.0-8.0); URINE APPEARANCE TURBID; URINE BILIRUBIN NEGATIVE (NEGATIVE); URINE COLOR YELLOW; URINE GLUCOSE (UA) NEGATIVE (NEGATIVE); URINE KETONE NEGATIVE (NEGATIVE); URINE LEUK ESTERASE NEGATIVE (NEGATIVE); URINE NITRITE NEGATIVE (NEGATIVE); URINE PROTEIN NEGATIVE (NEGATIVE)
[2019-03-21 10:10] LABS: COCAINE, UR NEGATIVE ng/ml (CUTOFF=300); METHADONE, UR NEGATIVE ng/ml (CUTOFF=300); PHENCYCLIDINE,URINE NEGATIVE ng/ml (CUTOFF=25); URINE AMPHETAMINES NEGATIVE ng/ml (CUTOFF=500); URINE BARBITURATES NEGATIVE ng/ml (CUTOFF=200); URINE BENZODIAZEPINES NEGATIVE ng/ml (CUTOFF=200)
[2019-03-21 10:12] LABS: OPIATES, URI POSITIVE ng/ml (CUTOFF=300)
== END 2019-03-21 11:13 | disposition home or self-care (01) ==
LOC: JER 07:40
PROC: 3E033GC Introduction of Other Therapeutic Substance into Peripheral Vein, Percutaneous Approach (ICD-10-PCS; principal; 2019-03-21)
PROC: 3E033GC Introduction of Other Therapeutic Substance into Peripheral Vein, Percutaneous Approach (ICD-10-PCS; 2019-03-21)
PROC: 3E033GC Introduction of Other Therapeutic Substance into Peripheral Vein, Percutaneous Approach (ICD-10-PCS; 2019-03-21)
DX: R11.2 Nausea with vomiting, unspecified (principal); F12.10 Cannabis abuse, uncomplicated; F11.10 Opioid abuse, uncomplicated; F17.210 Nicotine dependence, cigarettes, uncomplicated; Z88.0 Allergy status to penicillin; Z86.69 Personal history of other diseases of the nervous system and sense organs
CPT/HCPCS: 36415; 76705-TC; 80053; 80307; 81003; 83690; 85025; 99282-25; J7030